=== PATIENT | female | born 1975 ===

== ENCOUNTER 2019-03-28 12:31 | Emergency (ER) | payer OTHER ==
[2019-03-28 12:31] VITALS: BMI 24.6
[2019-03-28 13:16] VITALS: BP 129/77; PULSE 83; RESP 18; TEMP 99.8; O2SAT 99
--- NOTE | 2019-03-28 13:53 | C.PDOC ---
History Of Present Illness 43 y/o female presents to the ER complaining of right eye redness which has been present for the past 5 days. Patient states that she had clear discharge initially, then, patient reports that she began noticing some "goopy" discharge. She notes that she has history of colitis and she has eye redness sometimes. Denies having FB sensation, eye pain, h/a fever, chills or URI symptoms. Chief Complaint (Nursing): Eye Problem History Per: Patient History/Exam Limitations: no limitations Onset/Duration Of Symptoms: Days Current Symptoms Are (Timing): Still Present Severity: Moderate Past Medical History Reviewed: Historical Data, Nursing Documentation, Vital Signs Vital Signs: Last Vital Signs Temp 99.8 F H 03/28/19 13:15 Pulse 83 03/28/19 13:15 Resp 18 03/28/19 13:15 BP 129/77 03/28/19 13:15 Pulse Ox 99 03/28/19 13:15 Primary Care Provider: FAMILY PROVIDER,NO - Medical History PMH: Anemia, Atrial Fibrillation (RESOLVED 2YRS AGO), Crohn's Disease, Graves' Disease, HTN (RESOLVED 2YRS AGO), Hyperthyroidism, Hypothyroidism Denies: HIV, Chronic Kidney Disease Other Surgeries: Hx of surgeries - [facility] EXCISION OF ASCENDING COLON, ENDO, DIAGN (12/03/15) EXCISION OF CECUM, ENDO, DIAGN (12/03/15) EXCISION OF DESCENDING COLON, ENDO, DIAGN (12/03/15) EXCISION OF ILEUM, ENDO, DIAGN (12/03/15) EXCISION OF RECTUM, ENDO, DIAGN (12/03/15) EXCISION OF SIGMOID COLON, ENDO, DIAGN (12/03/15) EXCISION OF TRANSVERSE COLON, ENDO, DIAGN (12/03/15) Family History: States: No Known Family Hx - Social History Hx Tobacco Use: No Hx Alcohol Use: No Hx Substance Use: No - Immunization History Hx Tetanus Toxoid Vaccination: No Hx Influenza Vaccination: No Hx Pneumococcal Vaccination: No Review Of Systems Except As Marked, All Systems Reviewed And Found Negative. Constitutional: Negative for: Fever, Chills Eyes: Positive for: Redness (right eye redness) Physical Exam - Physical Exam Appears: Well, Non-toxic, No Acute Distress Skin: Normal Color, Warm, Dry Head: Atraumatic, Normacephalic Eye(s): bilateral: Normal Inspection, PERRL, EOMI, Other (b/l conjunctiva injected) Nose: Normal Oral Mucosa: Moist Neck: Normal ROM Neurological/Psych: Oriented x3, Normal Speech, Normal Cranial Nerves, Normal Motor, Normal Sensation ED Course And Treatment O2 Sat by Pulse Oximetry: 99 (RA) Pulse Ox Interpretation: Normal Disposition Counseled Patient/Family Regarding: Diagnosis, Need For Followup - Disposition Disposition: HOME/ ROUTINE Disposition Time: 13:49 Condition: GOOD Prescriptions: Tobramycin 0.3% [Tobrex 0.3% Ophth Soln] 1 drop OD QID #1 bottle Instructions: Conjunctivitis ([place]keye) (DC) Forms: [facility] (Japanese), General Discharge Instructions - POA Present On Arrival: None - Clinical Impression Clinical Impression: Conjunctivitis - Scribe Statement The provider has reviewed the documentation as recorded by the Jameel Alcocer Provider Attestation: All medical record entries made by the Emoryibe were at my direction and personally dictated by me. I have reviewed the chart and agree that the record accurately reflects my personal performance of the history, physical exam, medical decision making, and the department course for this patient. I have also personally directed, reviewed, and agree with the discharge instructions and disposition.
== END 2019-03-28 14:09 | disposition home or self-care (01) ==
LOC: C.ER 12:31
DX: H10.9 Unspecified conjunctivitis (principal)